=== PATIENT | female | born 1995 | race Caucasian/White ===

== ENCOUNTER 2021-04-05 10:54 | Outpatient (REF) | payer OTHER, SELFPAY ==
[2021-04-05 12:03] LABS: COVID-19 Test Negative (Negative)
== END 2021-04-05 10:55 | disposition home or self-care (01) ==
LOC: HO.LAB 10:54
PROVIDERS: Visit Provider Internal Medicine
DX: Z20.822 Contact with and (suspected) exposure to COVID-19 (principal)
CPT/HCPCS: 36415; 87635; C9803

== ENCOUNTER 2021-05-08 07:28 | Emergency (ER) | payer OTHER, SELFPAY ==
[2021-05-08 07:53] VITALS: BP 151/107; PULSE 100; RESP 20; TEMP 36.6; O2SAT 100; BMI 32.5
[2021-05-08 08:42] LABS: Hematocrit 43.8 % (37.0-47.0); Hemoglobin 14.8 g/dl (12.0-16.0); Mean Corpuscular HGB Conc 33.8 g/dl (31.0-35.0); Mean Corpuscular Hemoglobin 29.7 pg (27.0-33.0); Mean Platelet Volume 10.3 fL (9.4-12.3); Platelet Count 323 X10*3/uL (160-400); Red Blood Count 4.98 X10*6/uL (4.20-5.50); Red Cell Distribution Width 12.7 % (11.0-16.0); White Blood Count 7.8 X10*3/uL (4.8-10.8)
[2021-05-08 08:43] LABS: Appearance Urine CLEAR; Color Urine YELLOW; Glucose Urine UA NEG (NEG); Leukocyte Esterase Urine NEG (NEG); Nitrite Urine NEG (NEG); Specific Gravity - Urine <= 1.005 (1.005-1.025); Urine Blood NEG (NEG); Urine Ketones NEG (NEG); Urine Protein NEG (NEG-TRACE)
[2021-05-08 08:56] LABS: Anion Gap 10 (12-20); Blood Urea Nitrogen 11 mg/dL (9-16); Calcium 9.8 mg/dL (8.4-10.2); Carbon Dioxide 24 mmol/L (22-29); Chloride 106 mmol/L (96-108); Creatinine Clr Calc Pharmacy 131.6; Estimated Glomerular Filt Rate > 60; Glucose Random 101 mg/dL (60-115); Potassium 4.2 mmol/L (3.3-5.1); Sodium 136 mmol/L (135-145)
[2021-05-08 10:19] LABS: UPreg QC Valid YES; Urine Pregnancy NEGATIVE (NEGATIVE)
== END 2021-05-08 12:17 | disposition left against medical advice (07) ==
PROVIDERS: Emergency Provider Emergency Medicine
DX: R11.10 Vomiting, unspecified (principal); R42 Dizziness and giddiness
CPT/HCPCS: 36415; 80048; 81003; 81025; 85027; 99282; 99283

== ENCOUNTER 2021-08-24 08:16 | Emergency (ER) | payer OTHER, SELFPAY ==
[2021-08-24 08:29] VITALS: BP 142/97; PULSE 96; RESP 18; TEMP 37.1; O2SAT 98; BMI 30.7
--- NOTE | 2021-08-24 08:34 | ED.WOUNDLAC ---
HPI - Wound/Laceration General Chief Complaint: Wound/Laceration Stated Complaint: LAC L INDEX FINGER Time Seen by Provider: 08/24/21 08:21 Source: patient Mode of arrival: ambulatory Limitations: no limitations History of Present Illness HPI narrative: 26-year-old female presents to ED for left index finger laceration. Patient was trying to knife to remove a clip from her and cut herself by accident this morning. Patient unsure of last tetanus shot. Patient denies any numbness/tingling, paralysis, or profuse bleeding. Related Data Allergies Allergy/AdvReac Type Severity Reaction Status Date / Time No Known Allergies Allergy Unverified 01/07/20 19:23 [No Known Allergies*] Review of Systems Review of Systems: Finger laceration Yes all other systems are reviewed and are negative [facility] Past Medical History Medical History (Updated 08/24/21 @ 09:41 by KVNG Dumont) Anxiety HTN (hypertension) Social History Social History Alcohol intake: current Alcohol intake frequency: holidays/special occasions only Patient Tobacco Use Status: Never used Tobacco Use of substances other than those prescribed or required for medical reasons: No Advance Directives: No Advance Directives Information Provided: No Patient : No Physical Exam Vital Signs: Vital Signs: Last Vital Signs Temp 98.8 F 08/24/21 08:29 Pulse 96 08/24/21 08:29 Resp 18 08/24/21 08:29 BP 142/97 H 08/24/21 08:29 Pulse Ox 98 08/24/21 08:29 BMI result Body Mass Index 30.7 Const: General: cooperative, healthy appearing, comfortable, no acute distress, well developed, alert, awake and Physically active Orientation/consciousness: patient oriented x3 HEENT: Head: Yes normal to inspection, Yes No palpable skull fracture present, Yes normocephalic, Yes atraumatic and No abrasion Eyes: General: appearance normal, both eyes and all related structures Neck: Neck: Yes normal visual inspection, Yes full ROM, Yes no lymphadenopathy, Yes no meningeal signs, Yes trachea midline, Yes supple, No anterior neck swelling and No tender Chest: Chest palpation & inspection: normal inspection of the chest and normal palpation of entire chest wall Resp: Effort & Inspection: normal respiratory effort and able to speak in complete sentences Auscultation: clear to auscultation bilaterally Cardio: Jugular venous distension: no JVD Heart sounds: S1 normal heart sound present and S2 normal heart sound present GI: Inspection: Yes normal to inspection and No abdominal wall ecchymosis Palpation (GI): Soft to palpation, not firm, nontender, no guarding and not rigid : General: No CVA tenderness and Yes no CVA tenderness Back/Spine/Pelvis: Back: no CVA tenderness, No CVA tenderness and No back tenderness Skin: General skin exam: no rashes or lesions noted and elasticity normal Neuro: General: patient oriented x3, gait normal, tone normal, no meningeal signs and CN's II-XI intact bilaterally Cranial nerves: Yes CN's II-XII intact bilaterally Extrem: General: Yes normal to inspection and Yes full ROM Hand/finger images: 1. Small laceration control bleeding slightly wide will need laceration repair. Patient has complete range of motion of finger. Negative for signs of tendon/nerve injury. Capillary refills intact. Motor/neuro/vascular exam of extremities intact. Rest of extremity normal negative for signs of trauma Psych: Appearance: grossly normal, well kempt and not disheveled Course Course Course Narrative: No x-ray indicated. Laceration superficial. Will repair laceration. Reevaluation(s) Reevaluation #1: Wound cleaned with sterile saline Betadine iodine. 6 mL of lidocaine 2% digital block placed into finger. Size 3 nylon suture used for repair. Three sutures placed. Motor/nose/vascular exam after procedure intact. Tdap update Time: 21:39 MDM - Wound/Laceration MDM Narrative Medical decision making narrative: Laceration Discharge Plan Discharge Clinical Impression: Laceration Patient Disposition: Home, Self-Care Additional Instructions: Return to the ED for any swelling, redness, pus discharge, foul odor, bluish black discoloration, warmth, numbness/tingling or any other concerning symptoms. Sutures should be removed in 11 days. Please follow-up primary care provider Interventions: ED Discharge Assessment Last Done: 08/24/21 09:49 Discharge Date/Time: 08/24/21 09:49 Print Language: Turkmen
[2021-08-24] MEDS: Diphth,Pertus(ACell),Tet Adult 0.5 ML SYRINGE IM (08:38)
[2021-08-24] MEDS: Lidocaine HCl 2 % MPF 5 ML VIAL INFILTRATI ×2 (08:39)
== END 2021-08-24 09:49 | disposition home or self-care (01) ==
PROVIDERS: Emergency Provider Emergency Medicine
DX: S61.211A Laceration without foreign body of left index finger without damage to nail, initial encounter (principal); S60.411A Abrasion of left index finger, initial encounter; W26.0XXA Contact with knife, initial encounter; Y93.9 Activity, unspecified; Y92.9 Unspecified place or not applicable; Y99.9 Unspecified external cause status
CPT/HCPCS: 12001; 90471; 90715; 99284